=== PATIENT | female | born 1985 | race Caucasian/White ===

== ENCOUNTER → 2018-04-14 | Outpatient (CLI) | payer OTHER ==
[~2018-04-14] MED LIST: ATIVAN1 MG PO; MEDROL DOSEPAK4 MG PO; MOTRIN600 MG PO; NAPROSYN500 MG PO; NKHM; NORCO 325 MG-51 TAB PO; OVCON PO; PARAFON FORTE500 MG PO; PREVACID15 MG PO; PROAIR HFA0.09 MG/AC IH; ROBITUSSIN AC 110 ML PO; TRAMADOL HCL50 MG PO; VIBRAMYCIN100 MG PO
[2018-04-14 10:10] LABS: HEMATOCRIT 39.2 % (37.0-47.0); HEMOGLOBIN 12.5 g/dl (12.0-16.0); MEAN CELL VOLUME 87.5 fl (81.0-99.0); MEAN CORPUSCULAR HGB 27.9 pg (27.0-31.0); MEAN CORPUSCULAR HGB CONC 31.9 g/dl (33.0-37.0); MEAN PLATELET VOLUME 10.1 fl (9.6-12.3); RED BLOOD COUNT 4.48 10*6/uL (4.10-5.10); RED CELL DISTRI WIDTH 12.7 % (0-14.5); WHITE BLOOD COUNT 7.4 10*3/uL (4.8-10.8)
[2018-04-14 10:36] LABS: ALBUMIN 3.5 gm/dl (3.1-4.5); ALKALINE PHOSPHATASE 69 U/L (45-117); BUN 6 mg/dl (7-24); CHLORIDE 104 mmol/L (98-107); CHOLESTEROL 187 mg/dL (<200); CREATININE 0.73 mg/dL (0.55-1.02); HDL CHOLESTEROL 38 mg/dl (40-60); LDL CHOLESTEROL 103 mg/dL (9-159); POTASSIUM 3.8 mmol/L (3.5-5.1); SGOT/AST 45 IU/L (3-35); SGPT/ALT 69 U/L (12-78); SODIUM 139 mmol/L (136-145); TOTAL PROTEIN 7.8 gm/dL (6.4-8.2); TRIGLYCERIDES 231 mg/dl (<150); VLDL CHOLESTEROL 46 mg/dL (6-40)
[2018-04-15 20:06] LABS: TESTOSTERONE FREE, (DIRECT) 2.4 pg/mL (0.0-4.2)
== END | disposition home or self-care (01) ==
LOC: LAB 09:42
PROVIDERS: Family Medicine
DX: E55.9 Vitamin D deficiency, unspecified (principal); E78.00 Pure hypercholesterolemia, unspecified; R53.83 Other fatigue; E66.9 Obesity, unspecified

== ENCOUNTER → 2020-07-08 | Outpatient (CLI) | payer OTHER | END | disposition home or self-care (01) | LOC: COVID19 16:08 | PROVIDERS: ATTEND Nurse Practitioner Family | DX: Z20.822 Contact with and (suspected) exposure to COVID-19 (principal) ==

== ENCOUNTER → 2021-01-16 | Outpatient (CLI) | payer OTHER ==
[~2021-01-16] MED LIST changes: +CIPRO500 MG PO
[2021-01-16 11:52] LABS: HEMATOCRIT 36.8 % (37.0-47.0); MEAN CORPUSCULAR HGB 24.5 pg (27.0-31.0); MEAN CORPUSCULAR HGB CONC 29.9 g/dl (33.0-37.0); MEAN PLATELET VOLUME 10.7 fl (9.6-12.3); RED BLOOD COUNT 4.49 10*6/uL (4.10-5.10); RED CELL DISTRI WIDTH 15.8 % (0-14.5); WHITE BLOOD COUNT 9.8 10*3/uL (4.8-10.8)
[2021-01-16 12:11] LABS: ALBUMIN 3.7 gm/dl (3.1-4.5); BUN 6 mg/dl (7-24); CHLORIDE 103 mmol/L (98-107); CHOLESTEROL 266 mg/dL (<200); POTASSIUM 3.7 mmol/L (3.5-5.1); SGPT/ALT 108 U/L (12-78); SODIUM 138 mmol/L (136-145)
[2021-01-16 12:13] LABS: ALKALINE PHOSPHATASE 97 U/L (45-117); CREATININE 0.58 mg/dL (0.55-1.02); LDL CHOLESTEROL 178 mg/dL (9-159); SGOT/AST 119 IU/L (3-35); TOTAL PROTEIN 8.4 gm/dL (6.4-8.2); TRIGLYCERIDES 238 mg/dl (<150)
[2021-01-16 12:29] LABS: VITAMIN D, 25-HYDROXY 4.2 ng/mL (30-100)
== END | disposition home or self-care (01) ==
LOC: LAB 10:31
PROVIDERS: ATTEND Family Medicine
DX: E55.9 Vitamin D deficiency, unspecified (principal); F41.1 Generalized anxiety disorder; R53.83 Other fatigue; Z00.01 Encounter for general adult medical examination with abnormal findings; Z79.899 Other long term (current) drug therapy

== ENCOUNTER → 2021-01-27 | Outpatient (CLI) | payer OTHER | END | disposition home or self-care (01) | LOC: US 10:09 | PROVIDERS: ATTEND Family Medicine | DX: K76.0 Fatty (change of) liver, not elsewhere classified (principal); R16.0 Hepatomegaly, not elsewhere classified ==

== ENCOUNTER 2021-02-08 00:36 | Emergency (ER) | payer OTHER ==
[~2021-02-08] VITALS: Ht 167.6 cm; Wt 142.9 kg
[~2021-02-08 00:36] MED LIST changes: -CIPRO500 MG PO
[2021-02-08 01:03] LABS: BILIRUBIN Negative (Negative); BLOOD 1+ (Negative); CLARITY Cloudy (Clear); COLOR Yellow (Yellow); GLUCOSE Negative (Negative); KETONE Trace (Negative); LEUKO ESTERASE 2+ (Negative); NITRITE Negative (Negative)
[2021-02-08 01:17] LABS: BACTERIA 1+; EPITHELIAL CELLS 21-30; WBC 31-40 wbc/hpf (0-5)
[2021-02-08] MEDS ORDERED: CIPRO500 MG PO (01:36)
== END 2021-02-08 01:48 | disposition home or self-care (01) ==
LOC: ED 00:36
PROVIDERS: Internal Medicine
DX: N39.0 Urinary tract infection, site not specified (principal); A41.9 Sepsis, unspecified organism

== ENCOUNTER → 2021-03-24 | Outpatient (CLI) | payer OTHER ==
[~2021-03-24] MED LIST changes: +CIPRO500 MG PO
== END | disposition home or self-care (01) ==
LOC: CT 14:00
PROVIDERS: ATTEND Family Medicine
DX: R16.2 Hepatomegaly with splenomegaly, not elsewhere classified (principal); N20.0 Calculus of kidney

== ENCOUNTER → 2021-04-16 | Outpatient (CLI) | payer OTHER | END | disposition home or self-care (01) | LOC: US 04-07 14:00 | PROVIDERS: ATTEND Family Medicine | DX: N28.1 Cyst of kidney, acquired (principal); N85.2 Hypertrophy of uterus ==

== ENCOUNTER 2022-03-11 14:53 | Emergency (ER) | payer OTHER ==
[2022-03-11 17:44] LABS: BASO % 0.5 % (0.0-1.0); EOS % 0.3 % (1.0-4.0); HEMATOCRIT 32.8 % (37.0-47.0); LYMPH # 1.2 10*3/uL (1.3-4.4); LYMPH % 20.4 % (27.0-41.0); MEAN CELL VOLUME 72.4 fl (81.0-99.0); MEAN CORPUSCULAR HGB 21.4 pg (27.0-31.0); MEAN CORPUSCULAR HGB CONC 29.6 g/dl (33.0-37.0); MEAN PLATELET VOLUME 9.6 fl (9.6-12.3); MONO # 0.5 10*3/uL (0.1-1.0); MONO % 8.6 % (3.0-9.0); NEUT # 4.2 10*3/uL (2.3-7.9); NEUT % 69.5 % (47.0-73.0); PLATELET COUNT AUTOMATED 299 10*3/uL (130-400); RED BLOOD COUNT 4.53 10*6/uL (4.10-5.10); RED CELL DISTRI WIDTH 16.4 % (0-14.5)
[2022-03-11 17:59] LABS: BILIRUBIN Negative (Negative); BLOOD Negative (Negative); CLARITY Cloudy (Clear); COLOR Yellow (Yellow); GLUCOSE Negative (Negative); KETONE Trace (Negative); LEUKO ESTERASE 2+ (Negative); NITRITE Negative (Negative); UROBILINOGEN 0.2 E.U./dl (0.0-1.0)
[2022-03-11 18:01] LABS: ALKALINE PHOSPHATASE 69 U/L (45-117); BUN 5 mg/dl (7-24); CHLORIDE 105 mmol/L (98-107); CREATININE 0.66 mg/dL (0.55-1.02); LIPASE 158 U/L (73-393); POTASSIUM 3.8 mmol/L (3.5-5.1); SGOT/AST 32 IU/L (3-35); SGPT/ALT 29 U/L (12-78); SODIUM 135 mmol/L (136-145)
[2022-03-11 18:02] LABS: ACT PARTIAL THROMBO TIME 29.6 SECONDS (20.0-32.1)
[2022-03-11 18:15] LABS: BACTERIA 1+; MUCOUS 1+; WBC 21-30 wbc/hpf (0-5)
[2022-03-11] MEDS ORDERED: IBUPROFEN600 MG PO (21:20)
[2022-03-11] MEDS ORDERED: PREDNISONE20 M1 PO (21:20)
[2022-03-11] MEDS ORDERED: PROVENTIL HFA6.7 GM INH (21:20)
== END 2022-03-11 21:29 | disposition home or self-care (01) ==
LOC: ED 14:53
PROVIDERS: Physician Assistant
DX: U07.1 COVID-19 (principal)

== ENCOUNTER 2024-05-22 18:53 | Emergency (ER) | payer OTHER ==
[~2024-05-22] VITALS: Ht 167.6 cm; Wt 262.2 kg
[~2024-05-22 18:53] MED LIST changes: +IBUPROFEN600 MG PO; +PREDNISONE20 M1 PO; +PROVENTIL HFA6.7 GM INH
[2024-05-22] MEDS ORDERED: METFORMIN HYD1000 MG PO (19:35)
[2024-05-22] MEDS ORDERED: PREVACID30 M2 PO (19:36)
[2024-05-22] MEDS ORDERED: LORazepam 1 MG TAB PO ONE (19:50)
== END 2024-05-22 21:06 | disposition home or self-care (01) ==
LOC: ED 18:53
DX: F41.9 Anxiety disorder, unspecified (principal); Z88.0 Allergy status to penicillin; Z79.84 Long term (current) use of oral hypoglycemic drugs; Z87.42 Personal history of other diseases of the female genital tract

== ENCOUNTER 2024-06-03 21:53 | Emergency (ER) | payer OTHER ==
[~2024-06-03] VITALS: Ht 167.6 cm; Wt 124.7 kg
[~2024-06-03 21:53] MED LIST changes: +METFORMIN HYD1000 MG PO; +PREVACID30 M2 PO
[2024-06-03] MEDS ORDERED: hydrOXYzine pamoate 25 MG CAP PO ONE (22:35)
[2024-06-03] MEDS ORDERED: LORazepam 0.5 MG TAB PO ONE (23:25)
== END 2024-06-04 00:33 | disposition home or self-care (01) ==
LOC: ED 21:53
DX: F41.9 Anxiety disorder, unspecified (principal); Z20.822 Contact with and (suspected) exposure to COVID-19; E11.9 Type 2 diabetes mellitus without complications; K21.9 Gastro-esophageal reflux disease without esophagitis; Z88.0 Allergy status to penicillin; Z98.890 Other specified postprocedural states

== ENCOUNTER 2024-06-04 14:23 | Emergency (ER) | payer OTHER ==
[~2024-06-04] VITALS: Ht 167.6 cm; Wt 124.7 kg
[2024-06-04] MEDS ORDERED: LORazepam 1 MG TAB PO ONE ×3 (15:00→15:50)
[2024-06-04] MEDS ORDERED: LORazepam 1 MG TAB PO SCH (16:10)
== END 2024-06-04 16:19 | disposition home or self-care (01) ==
LOC: ED 14:23
DX: F41.9 Anxiety disorder, unspecified (principal); Z88.0 Allergy status to penicillin; Z79.84 Long term (current) use of oral hypoglycemic drugs; Z79.899 Other long term (current) drug therapy; Z87.42 Personal history of other diseases of the female genital tract

== ENCOUNTER 2024-06-14 10:33 | Emergency (ER) | payer OTHER ==
[~2024-06-14] VITALS: Ht 170.1 cm; Wt 127.5 kg
[2024-06-14] MEDS ORDERED: MG-AL HYDROXIDE/SIMETICONE 30 ML UDC PO STA (10:58)
[2024-06-14] MEDS ORDERED: Dicyclomine Hydrochloride 20 MG/10 ML OSYR PO STA (10:58)
[2024-06-14] MEDS ORDERED: Lidocaine Hydrochloride 15 ML UDC PO STA (10:58)
== END 2024-06-14 11:36 | disposition home or self-care (01) ==
LOC: ED 10:33
DX: S27.818A Other injury of esophagus (thoracic part), initial encounter (principal); T17.928A Food in respiratory tract, part unspecified causing other injury, initial encounter; K21.9 Gastro-esophageal reflux disease without esophagitis; F41.9 Anxiety disorder, unspecified; E11.9 Type 2 diabetes mellitus without complications; Z88.0 Allergy status to penicillin; Z98.890 Other specified postprocedural states; W44.F3XA Food entering into or through a natural orifice, initial encounter; Y93.89 Activity, other specified; Y92.89 Other specified places as the place of occurrence of the external cause; Y99.8 Other external cause status

== ENCOUNTER → 2024-06-19 | Outpatient (CLI) | payer OTHER | END | disposition home or self-care (01) | LOC: RESCLI 14:25 | PROVIDERS: ATTEND Internal Medicine | DX: F41.9 Anxiety disorder, unspecified (principal); K21.9 Gastro-esophageal reflux disease without esophagitis; R73.09 Other abnormal glucose; Z79.899 Other long term (current) drug therapy; Z98.890 Other specified postprocedural states; Z88.0 Allergy status to penicillin ==

== ENCOUNTER 2024-06-25 11:33 | Emergency (ER) | payer OTHER ==
[~2024-06-25] VITALS: Ht 167.6 cm; Wt 118.4 kg
[2024-06-25 12:24] LABS: BASO % 0.5 % (0.0-1.0); EOS # 0.1 10*3/uL (0.0-0.4); EOS % 1.1 % (1.0-4.0); HEMATOCRIT 33.8 % (37.0-47.0); MEAN CELL VOLUME 69.4 fl (81.0-99.0); MEAN CORPUSCULAR HGB 19.3 pg (27.0-31.0); MEAN CORPUSCULAR HGB CONC 27.8 g/dl (33.0-37.0); MEAN PLATELET VOLUME 9.7 fl (9.6-12.3); MONO # 0.5 10*3/uL (0.1-1.0); MONO % 5.6 % (3.0-9.0); NEUT # 5.9 10*3/uL (2.3-7.9); NEUT % 66.2 % (47.0-73.0); PLATELET COUNT AUTOMATED 390 10*3/uL (130-400); RED BLOOD COUNT 4.87 10*6/uL (4.10-5.10); RED CELL DISTRI WIDTH 18.4 % (0-14.5); WHITE BLOOD COUNT 8.9 10*3/uL (4.8-10.8)
[2024-06-25 12:42] LABS: CHLORIDE 104 mmol/L (98-107); POTASSIUM 3.4 mmol/L (3.4-5.1)
[2024-06-25 12:43] LABS: BUN < 5 mg/dl (9-23)
== END 2024-06-25 14:11 | disposition home or self-care (01) ==
LOC: ED 11:33
PROVIDERS: Nurse Practitioner Family
DX: R13.10 Dysphagia, unspecified (principal); F41.9 Anxiety disorder, unspecified; E11.9 Type 2 diabetes mellitus without complications; K21.9 Gastro-esophageal reflux disease without esophagitis; Z88.0 Allergy status to penicillin; Z98.890 Other specified postprocedural states